=== PATIENT | female | born 1980 | race African-American/Black ===

== ENCOUNTER 2016-08-07 16:45 | Inpatient (IN) | payer OTHER ==
--- NOTE | ~2016-08-07 | PA ---
Unit #: [id number] #: [id number] Patient: ALEJANDRA JIMENEZ [id number] [facility] [address] [place] [address] [id number] I MR#: [id number] NAME: ALEJANDRA JIMENEZ ROOM: P207 Age: 36 Sex: F Admission Date: 08/07/2016 : 1980 Date of Assessment: 08/09/2016 Attending Physician: Pasquale Brock M.D. Admitting Physician: Pasquale Brock M.D. Primary Care Physician: Generic Doctor Not In System PSYCHIATRIC ASSESSMENT INFORMANTS The patient reliability, fair informant and chart reliability, good. CHIEF COMPLAINT Anxiety attack. HISTORY OF PRESENT ILLNESS Ms. Burger is a 36-year-old female, seen on . The patient presented with the above-mentioned complaint. The patient reports that she lives with her and two daughters. The patient reported suicidal ideation with anxiety. The patient denied any homicidal ideation, delusions, or hallucination. The patient reported suicidal ideation and having different plans. The patient reports that she would not be safe if she goes home. The patient also reported drinking half a pint of vodka 3 to 4 times a week, not currently having any withdrawal symptoms. The patient needed inpatient admission at this time for psychiatric stabilization. PAST PSYCHIATRIC HISTORY Remarkable for history of previous treatment inpatient at [facility] for suicidal ideation in 07/2016. FAMILY HISTORY AND SOCIAL HISTORY The patient lives with and two daughters. Family psychiatric illness is remarkable for history of schizophrenia in the family. History of alcohol abuse in the family. No known history of any abuse. MEDICAL HISTORY Remarkable for history of arthritis and back problem. Musculoskeletal; muscle strength and tone, no atrophy or abnormal movement. Gait normal. MEDICATION HISTORY The patient is on Lamictal, trazodone, and Maalox. ALLERGIES No known drug allergies. SUBSTANCE ABUSE HISTORY The patient uses tobacco, age of onset 14 and alcohol, age of onset 14. History of blackouts. No history of any HIV or hepatitis. No history of any IV drug use. REVIEW OF SYSTEMS Unit #: [id number] #: [id number] Patient: ALEJANDRA JIMENEZ HEENT: Eyes, clear. Ears, nose, mouth, and throat; clear. CARDIOVASCULAR: Unremarkable. RESPIRATORY: Unremarkable. GI: Unremarkable. : Unremarkable. SKIN: Unremarkable. LYMPH NODE: Unremarkable. NEUROLOGIC: Unremarkable. ENDOCRINE: Unremarkable. HEMATOLOGIC: Unremarkable. ALLERGIC/IMMUNOLOGIC: Unremarkable. MUSCULOSKELETAL: Muscle strength and tone, no atrophy or abnormal movement. Gait normal. MENTAL STATUS EXAMINATION CONSTITUTIONAL: Measurement of vital signs; temperature 98.4, heart rate 72, respiratory rate 20, blood pressure 94/55, height 5 feet 6 inches, and weight 195 pounds. GENERAL APPEARANCE: The patient dressed casually. The patient did not show any facial deformity. MUSCULOSKELETAL: Please see above. PSYCHIATRIC EXAMINATION Description of speech; regular rate, normal volume, normal articulation, and coherent. Description of thought process, goal directed. Description of association, intact. Description of abnormal psychotic thinking; the patient denied any hallucination or delusions, but feeling sad, depressed, and substance abuse. Description of the patient's judgment; concerning everyday activity, poor. Social situation, poor. Concerning psychiatric condition, poor. Complete mental status examination; oriented in time, place, and person. Recent and remote memory, fair. Attention span and concentration, fair. Language, able to name object and repeat phrases. Fund of knowledge, aware of current event and passive vocabulary intact. Mood and affect, sad and dysphoric. Insight and judgment, fair to poor. ASSETS AND LIABILITIES Assets, the patient is articulate and able to take care of her ADL. Liability, history of substance abuse. ADMITTING DIAGNOSES Psychiatric: Mood disorder, not otherwise specified, F32.9 and alcohol use disorder, severe, F10.20. Secondary diagnosis: Deferred. Medical diagnosis: Back problem and arthritis. Stressors: Psychosocial stressors. PSYCHIATRIC PLAN AND TREATMENT GOAL AND DISCHARGE PLAN 1. Advised to admit the patient on the inpatient unit. Provide safe, supportive, and structured environment. 2. Ordered labs; CBC, CMP, UA, and UDS. 3. The patient to start with detox protocol, detox monitoring, and precaution for self-harm. The patient to continue with Lamictal 25 mg b.i.d. and Desyrel 100 mg at bedtime for sleep. Unit #: [id number] #: [id number] Patient: ALEJANDRA JIMENEZ 4. The patient to attend all the programing including chemical dependency group. TREATMENT GOAL To attain euthymic mood, gain insight into her problem, and learn coping skills. DISCHARGE PLAN Plan to stabilize the patient and consider followup in outpatient program. ESTIMATED LENGTH OF STAY 3 to 5 days. Dictated by... Everton Johnson/refugio TD: 08/09/2016 19:49 JOB #: [id number] PSYCHIATRIC ASSESSMENT X Pasquale Brock MD PSYCHIATRIC ASSESSMENT
--- NOTE | ~2016-08-07 | PN ---
Unit #: [id number] #: [id number] Patient: GWENDOLYN JIMENEZ [id number] [facility] [address] [place] [address] [id number] MR#: [id number] NAME: GWENDOLYN JIMENEZ ROOM: P207 Age: 36 Sex: F Admission Date: 08/07/2016 : 1980 Attending Physician: Pasquale Brock M.D. Admitting Physician: Pasquale Brock M.D. Primary Care Physician: Generic Doctor Not In System [facility] PROGRESS NOTES DATE OF SERVICE: 08/10/2016 DISCUSSION Gwendolyn Jimenez is a 36-year-old female, seen on 08/10/2016. The patient interviewed, chart reviewed, and obtained information from nursing staff. The patient was compliant and cooperative. Reports trazodone is not working. The patient was able to maintain safe behavior, compliant, and cooperative. The patient is currently on Desyrel, Lamictal, and Vistaril. Complete review of systems unremarkable. MENTAL STATUS EXAMINATION General appearance, the patient dressed casually. Attention span and concentration, fair. Oriented in place and person. Mood and affect were sad, dysphoric, anxious. Speech, regular rate. Thought process, goal directed. The patient denied any thoughts of harming self or others or any psychotic symptom, but seclusive. Recent and remote memory, poor. Insight and judgment, poor. DIAGNOSES 1. Mood disorder, not otherwise specified. 2. Alcohol use disorder, severe. ASSESSMENT AND PLAN Advised to continue with current medication and therapeutic protocol. We will monitor response to medication and make further adjustment of medication. Dictated by... Everton Johnson/refugio TD: 08/11/2016 17:22 JOB #: [id number] Unit #: [id number] #: [id number] Patient: GWENDOLYN JIMENEZ PROGRESS NOTES X Pasquale Brock MD PROGRESS NOTE
--- NOTE | ~2016-08-07 | DS ---
Unit #: [id number] #: [id number] Patient: ALEJANDRA JIMENEZ [id number] [facility] [address] [place] [address] [id number] MR#: [id number] NAME: ALEJANDRA JIMENEZ ROOM: [facility] Age: 36 Sex: F Admission Date: 08/07/2016 : 1980 Discharge Date: 08/11/2016 Attending Physician: Pasquale Brock M.D. Primary Care Physician: Generic Doctor Not In System DISCHARGE SUMMARY REASON FOR ADMISSION Anxiety attack and substance abuse. DIAGNOSTIC STUDIES LABORATORY RESULTS: Unremarkable except urine drug screen positive for cocaine and marijuana. HOSPITAL COURSE The patient was admitted to inpatient unit on 08/07/2016 and discharged on 08/11/2016. The patient was treated with group therapy, individual therapy, and medication management. The patient responded well with the above modalities of treatment and following medications. The patient was subsequently discharged with a plan to follow up in outpatient clinic. DISCHARGE MEDICATIONS Lamictal 25 mg b.i.d. for mood symptoms and Desyrel 100 mg at bedtime for mood stabilization. DISCHARGE DIAGNOSES Psychiatric: 1. Mood disorder, not otherwise specified. 2. Anxiety disorder, not otherwise specified. 3. Marijuana abuse, moderate, F12.20. 4. Cocaine use disorder, moderate, F14.20. Secondary diagnosis: Deferred. Medical diagnosis: None. Stressors: Psychosocial stressors. DISCHARGE INSTRUCTIONS The patient is to follow up in outpatient clinic as per mental health social worker. CONDITION ON DISCHARGE The patient was pleasant and cooperative. Denied any psychotic symptom or any suicidal ideation. PROGNOSIS Guarded. DIET AND ACTIVITY As tolerated. Unit #: [id number] #: [id number] Patient: ALEJANDRA JIMENEZ Dictated by... Everton Johnson/refugio TD: 08/11/2016 21:07 JOB #: [id number] DISCHARGE SUMMARY X Pasquale Brock MD X DISCHARGE SUMMARY
--- NOTE | ~2016-08-07 | PN ---
Unit #: [id number] #: [id number] Patient: GWENDOLYN JIMENEZ [id number] [facility] [address] [place] [address] [id number] I MR#: [id number] NAME: GWENDOLYN JIMENEZ ROOM: P207 Age: 36 Sex: F Admission Date: 08/07/2016 : 1980 Attending Physician: Pasquale Brock M.D. Admitting Physician: Pasquale Brock M.D. Primary Care Physician: Generic Doctor Not In System [facility] PROGRESS NOTES DATE 08/08/2016 DISCUSSION Gwendolyn Jimenez is a 36-year-old female seen on 08/08/2016. The patient continues to be seclusive, isolative, flat affect, anxious, nervous, sad, depressed. Complete review of systems unremarkable. MENTAL STATUS EXAMINATION General appearance, the patient dressed casually. Attention span and concentration poor. Oriented to place and person. Mood and affect sad, dysphoric. Speech monotone. Thought process concrete. The patient denied any thoughts of harming self or others but guarded. Recent and remote memory poor. Insight and judgement poor. DIAGNOSES 1. Mood disorder NOS. 2. Alcohol use disorder severe. ASSESSMENT/PLAN Advise to continue with current medication and therapeutic protocol. We will monitor response to medication and make further adjustment of medication. Dictated by... Everton Johnson/jose TD: 08/12/2016 01:56 JOB #: [id number] Unit #: [id number] #: [id number] Patient: GWENDOLYN JIMENEZ [facility] PROGRESS NOTES X Pasquale Brock MD PROGRESS NOTE
--- NOTE | ~2016-08-07 | HP ---
Unit #: [id number] #: [id number] Patient: GWENDOLYN JIMENEZ [id number] [place] [address] [id number] I MR#: [id number] NAME: GWENDOLYN JIMENEZ ROOM: P207 Age: 36 Sex: F Admission Date: 08/07/2016 : 1980 Attending Physician: Pasquale Brock M.D. Admitting Physician: Pasquale Brock M.D. Primary Care Physician: Generic Doctor Not In System HISTORY AND PHYSICAL HISTORY OF PRESENT ILLNESS Gwendolyn is a 36-year-old female admitted on 08/07/[address] [place] [address] for suicidal ideation and anxiety. She reports having a panic attack this morning. PAST MEDICAL HISTORY Arthritis and chronic back pain. PAST SURGICAL HISTORY None documented. SOCIAL HISTORY She is currently and living with her . Smokes two to three cigarettes daily and ____ alcohol use throughout the week. FAMILY HISTORY Noncontributory. REVIEW OF SYSTEMS CONSTITUTIONAL: No fever or chills. HEENT: Denies any sore throat, ear pain or runny nose. CARDIOVASCULAR: Denies chest pain, irregular heart rhythm or palpitations. CHEST: Denies shortness of breath or cough. No hemoptysis. GASTROINTESTINAL: Denies nausea, vomiting, diarrhea or chronic constipation. ENDOCRINE: Denies history of increased thirst or urination. No recent significant weight loss or gain. GENITOURINARY: Denies dysuria, frequency, or hematuria. SKIN: Denies any rashes. HEMATOLOGIC: Denies history of increased bleeding or bruising. MUSCULOSKELETAL: Denies any hot, swollen joints. No generalized muscle pain. NEUROLOGIC: Denies problems with vision or speech. No frequent, severe headaches. No numbness, tingling or weakness in any extremities. Denies loss of bladder or bowel control. CURRENT MEDICATIONS 1. Lamictal 2. Trazodone. ALLERGIES No known drug allergies. Unit #: [id number] #: [id number] Patient: GWENDOLYN JIMENEZ PHYSICAL EXAMINATION GENERAL: Alert, oriented, in no acute distress. VITAL SIGNS: Blood pressure 116/62, heart rate 91, respirations 20, temperature 98.3. HEIGHT: 5 foot 6 inches. WEIGHT: 195 pounds. SKIN: Warm and dry without rash or lesion. HEENT: Normocephalic. TMs not viewed. Oral and nasal passages clear. Conjunctivae clear. PERRLA. EOMs intact. NECK: Supple without lymphadenopathy or thyromegaly. HEART: Regular rate and rhythm without murmur. LUNGS: Clear. ABDOMEN: Soft, nontender, without masses or hepatosplenomegaly. : Not done. EXTREMITIES: No evidence of cyanosis, clubbing or edema. Moves all without focal deficit. NEUROLOGICAL: Grossly within normal limits. Cranial Nerves: II: Visual baeza are intact. III, IV AND : Extraocular movements are intact. Pupils are equal, round and reactive to light. V: Facial sensation is grossly normal. VII: Facial movements and expression are normal. VIII: Auditory acuity grossly intact. IX, X: Uvula is midline. Phonation is normal. XI: Patient shrugs shoulders and turns head normally. XII: Tongue protrudes in the midline. Sensory and Motor Function: Sensory and motor sensation is grossly normal. Motor: moves all extremities well. Coordination: Gait is normal. Deep Tendon Reflexes: Intact. IMPRESSION 1. Psychiatric admission. 2. Arthritis. 3. Chronic back pain. RECOMMENDATIONS Psychiatric, per psychiatrist. MEDICAL: I see no contraindications to participating in facility's activities. MEDICAL PROGNOSIS Good. MEDICAL CONDITION Stable. Dictated by... Joe Harrell/jose TD: 08/07/2016 20:13 JOB #: [id number] Unit #: [id number] #: [id number] Patient: GWENDOLYN JIMENEZ HISTORY AND PHYSICAL X ARLETTE ZAVALA APRN X HISTORY AND PHYSICAL
--- NOTE | ~2016-08-07 | PN ---
Unit #: [id number] #: [id number] Patient: GWENDOLYN JIMENEZ [id number] [facility] [address] [place] [address] [id number] MR#: [id number] NAME: GWENDOLYN JIMENEZ ROOM: P207 Age: 36 Sex: F Admission Date: 08/07/2016 : 1980 Attending Physician: Pasquale Brock M.D. Admitting Physician: Pasquale Brock M.D. Primary Care Physician: Generic Doctor Not In System [facility] PROGRESS NOTES DATE 08/09/2016 DISCUSSION Gwendolyn Jimenez is a 36-year-old female, seen on 08/09/2016. The patient interviewed, chart reviewed. The patient reports currently detoxing from drugs and reports decrease in anxiety, mood labile, anxious and nervous. Vital signs, stable, temperature 98.4, pulse 72, and blood pressure 94/55. REVIEW OF SYSTEMS Complete review of systems unremarkable. MENTAL STATUS EXAMINATION General appearance: Patient casually dressed. Attention span and concentration, fair. Oriented to place and person. Mood and affect, sad and dysphoric, and anxious. Speech, regular rate. Thought process, goal-directed. Association, the patient denied any thoughts of harming self or others or any psychotic symptoms. Recent and remote memory, poor. Insight and judgment, poor. DIAGNOSES 1. Alcohol use disorder, moderate. 2. Mood disorder, NOS. ASSESSMENT/PLAN Advised to continue with the current medication and therapeutic protocol and will monitor response to medication, and make further adjustment of medication if needed. Dictated by... Everton Johnson/swapna TD: 08/12/2016 12:22 JOB #: [id number] Unit #: [id number] #: [id number] Patient: GWENDOLYN JIMENEZ [facility] PROGRESS NOTES X Pasquale Brock MD PROGRESS NOTE
[2016-08-08 09:31] LABS: BASOPHIL% 0.3 % (0-2.5); EOSINOPHIL# 0.2 X10e3 (0-0.7); EOSINOPHIL% 2.5 % (0.0-7.0); HEMATOCRIT 37.2 % (35.0-45.0); HEMOGLOBIN 12.2 gm/dL (12.0-16.0); LYMPHOCYTE# 2.5 X10e3 (1.0-3.5); MEAN CELL VOLUME 86.3 FL (83-96); MEAN CORPUSCULAR HEMOGLOBIN 28.3 PG (28-34); MEAN CORPUSCULAR HGB CONC 32.8 g/dL (30-36); MEAN PLATELET VOLUME 9.2 FL (6.5-11.5); MONOCYTE# 0.4 X10e3 (0-1.0); MONOCYTE% 5.6 % (3.0-12.0); NEUTROPHIL# 3.9 X10e3 (1.5-7.1); NEUTROPHIL% 55.6 % (40-75); PLATELET COUNT 238 X10e3 (140-420); RED BLOOD COUNT 4.31 X10e (3.90-5.30); RED CELL DISTRIBUTION WIDTH 15.3 % (11.0-15.5)
[2016-08-08 09:39] LABS: DIFF IND NO
[2016-08-08 10:05] LABS: THYROID STIMULATING HORMONE 0.46 uIU/ml (0.34-5.60)
[2016-08-08 10:10] LABS: ALBUMIN SERUM 3.6 g/dL (3.5-5.0); ALKALINE PHOSPHATASE 57 U/L (32-92); ALT (SGPT) 17 U/L (10-40); AST (SGOT) 24 U/L (10-42); BILIRUBIN,TOTAL 0.8 mg/dL (0.2-2.0); BLOOD UREA NITROGEN 8 mg/dL (9-23); CARBON DIOXIDE 26 mmol/L (22-31); CHLORIDE 105 mmol/L (100-111); CREATININE SERUM 0.8 mg/dL (0.6-1.4); GLOM FILT RATE Estimated ABOVE60 mL/min (>60); GLUCOSE FASTING 108 mg/dL (70-110); POTASSIUM 3.9 mmol/L (3.5-5.1); PROTEIN TOTAL SERUM 6.4 g/dL (6.0-8.3); SODIUM 139 mmol/L (135-145)
[2016-08-08 10:12] LABS: FREE THYROXIN (T4) 0.76 ng/dL (0.58-1.64)
[2016-08-10 12:41] LABS: URINE APPEARANCE CLEAR; URINE BILIRUBIN NEG (NEG); URINE BLOOD NEG (NEG); URINE COLOR YELLOW; URINE GLUCOSE NEG (NEG); URINE KETONE NEG (NEG); URINE LEUKOCYTE ESTERASE NEG (NEG); URINE NITRATE NEG (NEG); URINE PH 7.5 (5-8); URINE PROTEIN NEG (NEG); URINE SPECIFIC GRAVITY 1.022 (1.003-1.035); URINE UROBILINOGEN 0.2 MG/DL (NEG)
[2016-08-10 13:08] LABS: AMPHETAMINE NEG (NEG); BARBITURATES NEG (NEG); BENZODIAZEPINES NEG (NEG); COCAINE POS (NEG); MARIJUANA POS (NEG); OPIATES NEG (NEG); TRICYCLIC ANTIDEPRESSANTS NEG (NEG); U METHADONE NEG (NEG)
== END 2016-08-11 16:28 | disposition home or self-care (01) | DRG 885 ==
LOC: P2S 16:45
PROVIDERS: Psychiatry & Neurology Psychiatry
DX: F39 Unspecified mood [affective] disorder (principal); R45.851 Suicidal ideations; F14.20 Cocaine dependence, uncomplicated; F32.9 Major depressive disorder, single episode, unspecified; F10.20 Alcohol dependence, uncomplicated; F41.9 Anxiety disorder, unspecified; F17.200 Nicotine dependence, unspecified, uncomplicated; M19.90 Unspecified osteoarthritis, unspecified site; F12.10 Cannabis abuse, uncomplicated
CPT/HCPCS: 80053; 80307; 81003; 84439; 84443; 84703; 85025